=== PATIENT | female | born 1950 | race Caucasian/White ===

== ENCOUNTER 2016-11-08 09:23 | Emergency (ER) | payer SELFPAY ==
[2016-11-08] MEDS ORDERED: Ibuprofen 800 MG TAB ONE (09:31)
--- NOTE | 2016-11-08 10:38 | RAD ---
THREE VIEWS OF THE LEFT FOOT: DTAE: 11/08/16. HISTORY: Tripped on luggage and injured foot. Left foot pain. FINDINGS: There is an oblique fracture involving the proximal phalanx of the middle toe with approximately 1.5 mm of separation of the fracture fragments. No additional fracture is seen. 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 No additional osse ous abnormality is seen. IMPRESSION: Oblique and minimally fracture involving the proximal phalanx left middle toe. POS: [facility]
== END 2016-11-08 10:37 | disposition home or self-care (01) ==
LOC: NAV ERS 09:23
DX: S92.512A Displaced fracture of proximal phalanx of left lesser toe(s), initial encounter for closed fracture (principal); F17.210 Nicotine dependence, cigarettes, uncomplicated; X58.XXXA Exposure to other specified factors, initial encounter